=== PATIENT | male | born 1955 | race Caucasian/White ===

== ENCOUNTER → 2017-12-29 | Outpatient (CLI) | payer OTHER ==
[~2017-12-29] MED LIST: DIATRIZOATE MEGL/DIATRIZOA SOD 30 ML BTL PO ONE; IOPAMIDOL 370 MG/ML 200 ML INFUS..BTL INJ ONE; SODIUM CHLORIDE 0.9% 250ML 250 ML ONE; SODIUM CHLORIDE 0.9% 50ML 50 ML ONE
[2017-12-29 08:17] LABS: CREATININE, SERUM 1.25 mg/dL (0.72-1.25)
--- NOTE | 2017-12-29 10:34 | Diagnostic Imaging Report ---
PROCEDURE: CT ABDOMEN AND PELVIS WITH CONTRAST TECHNIQUE: The abdomen and pelvis were scanned utilizing a multidetector helical scanner from the diaphragm to the lesser trochanter after the IV administration of 100 cc of Isovue 370 and the oral administration of water intermixed with Gastrografin. Coronal and sagittal multiplanar reformations were obtained. DLP: 646.23 mGy-cm COMPARISON: Patients [facility], CT, CT ABDOMEN AND PELVIS WITHOUT CONTRAST, 05/30/2009, 12:14. INDICATIONS: Lower groin pain FINDINGS: LOWER THORAX: Normal. HEPATOBILIARY: Diffuse hepatic steatosis. Small hepatic hypodensity again noted but too small to characterize. No biliary ductal dilatation. SPLEEN: No splenomegaly. PANCREAS: No focal masses. Mild pancreatic duct dilatation unchanged. ADRENALS: No adrenal nodules. KIDNEYS/URETERS: The right renal cyst has now increased in size measuring 4.2 cm (previously measured 2.4 cm). There is a nonobstructing 3.5 mm left lower pole renal stone. PELVIC ORGANS/BLADDER: Multiple pelvic phleboliths again noted. Prostate is larger than before now measuring 5.7 cm (previously 4.2 cm). The prostate also has a heterogeneous enhancement pattern. PERITONEUM / RETROPERITONEUM: No mass or free fluid LYMPH NODES: No lymphadenopathy. VESSELS: The right hepatic artery originates from the SMA. GI TRACT: No distention or wall thickening. The appendix is normal. BONES AND SOFT TISSUES: Unremarkable. Tiny umbilical hernia. IMPRESSION: 1. Right renal cyst has increased in size. 2. Nonobstructing left lower pole renal stone. 3. Enlargement of the prostate gland. Quinton Patrick D.O. Dictated by: Quinton Patrick D.O. on 12/29/2017 at 10:38 Electronically approved by: Quinton Patrick D.O. on 12/29/2017 at 10:38
== END ==
LOC: CT 07:26
PROVIDERS: ATTEND Family Medicine
DX: R10.30 Lower abdominal pain, unspecified (principal)
CPT/HCPCS: 36415; 74177; 82565; 84520; J7050; Q9967

== ENCOUNTER → 2018-06-26 | Outpatient (CLI) | payer OTHER ==
--- NOTE | 2018-06-26 12:34 | Diagnostic Imaging Report ---
EXAM: Abdomen 2 Views INDICATION: ^[id number] ^[id number] ^CALCULUS OF KIDNEY COMPARISON: [facility] dated 01/29/2011 FINDINGS: Nonobstructive bowel gas pattern. No signs of pneumoperitoneum. 3 mm calcification overlying left renal inferior pole. Unchanged pelvic phleboliths. No acute osseous abnormality. IMPRESSION: 1. 3 mm left renal inferior pole calculus. 2. Nonobstructive bowel gas pattern. Signed by: Dr. Jose Eduardo Jimenez MD on 06/26/2018 12:31 PM
== END ==
LOC: RAD 11:13
PROVIDERS: ATTEND Urology
DX: N20.0 Calculus of kidney (principal)
CPT/HCPCS: 74018

== ENCOUNTER → 2018-11-04 | Outpatient (CLI) | payer MEDICARE, OTHER ==
--- NOTE | 2018-11-04 09:39 | Diagnostic Imaging Report ---
Exam: Abdominal film Clinical History: Renal stone Comparison: [facility] 06/26/2018, CT abdomen and pelvis 12/29/2017 DISCUSSION: Bowel gas pattern shows no dilated, air-filled loops of bowel. Unchanged 3 mm calcification projecting over the lower pole of the left renal shadow. Multiple large pelvic phleboliths are unchanged. No mass effect or organomegaly. Bowel gas pattern is nonobstructive. 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 IMPRESSION: Unchanged appearance of 3 mm left lower pole renal calculus. Signed by: Dr. Shawn Silva M.D. on 11/04/2018 9:36 AM
== END ==
LOC: RAD 08:32
PROVIDERS: ATTEND Urology
DX: N20.0 Calculus of kidney (principal)
CPT/HCPCS: 74018

== ENCOUNTER → 2019-03-15 | Outpatient (CLI) | payer MEDICARE, OTHER ==
--- NOTE | 2019-03-15 09:15 | Diagnostic Imaging Report ---
Exam: [facility] - 2 views Indication: Renal calculi Comparison: Multiple prior abdominal radiographs, most recently of 11/04/2018 Findings: A 4 mm calcific density overlying the expected left renal upper pole may represent renal calculus versus intraluminal bowel contents. The previously seen left lower pole renal calculus is no longer visualized on this study. No other radiographically apparent renal calculi. No acute osseous injury. Degenerative changes of the visualized spine. Numerous phleboliths in the pelvis. Nonobstructive bowel gas pattern. No free air. Impression: 4 mm calcific density overlying the left renal upper pole may represent renal calculus versus intraluminal bowel content. Previously seen left lower pole renal calculus no longer visualized on today's exam. Signed by: Cory Baez MD on 03/15/2019 9:12 AM
== END ==
LOC: RAD 08:34
PROVIDERS: ATTEND Urology
DX: N20.0 Calculus of kidney (principal)
CPT/HCPCS: 74018

== ENCOUNTER → 2019-09-02 | Outpatient (CLI) | payer MEDICARE, OTHER ==
--- NOTE | 2019-09-02 17:01 | Diagnostic Imaging Report ---
Exam: [facility] - 2 views Indication: Renal calculi Comparison: Multiple prior [facility], most recently 03/15/2019 Findings: No radiographically apparent renal calculi. Nonobstructive bowel gas pattern. No free air. Phleboliths in the pelvis. Mild degenerative changes of the visualized spine. Mild degenerative changes of the right hip joint and moderate degenerative changes of the left hip joint. Impression: No radiographically apparent renal calculi. Nonobstructive bowel gas pattern. No free air. Signed by: Cory Baez MD on 09/02/2019 4:59 PM
== END ==
LOC: RAD 10:35
PROVIDERS: ATTEND Urology
DX: N20.0 Calculus of kidney (principal)
CPT/HCPCS: 74018

== ENCOUNTER → 2020-10-24 | Outpatient (CLI) | payer MEDICARE, OTHER ==
[~2020-10-24] MED LIST changes: -SODIUM CHLORIDE 0.9% 250ML 250 ML ONE
[2020-10-24 16:04] LABS: BLOOD UREA NITROGEN 19 mg/dL (7-26); BUN/CREATININE RATIO 16 (6-25); CREATININE, SERUM 1.16 mg/dL (0.72-1.25); EST GLOMERULAR FILTRATION RATE > 60 ML/MIN (60-)
== END ==
LOC: CT 15:04
PROVIDERS: ATTEND Family Medicine
DX: R10.31 Right lower quadrant pain (principal)
CPT/HCPCS: 36415; 72193; 82565; 84520; Q9967

== ENCOUNTER → 2020-11-17 | Day surgery (SDC) | payer MEDICARE, OTHER ==
[2020-11-14 11:31] LABS: BASOPHILS % 0.5 % (0.0-1.0); EOSINOPHILS # (AUTO) 0.2 (0.0-0.4); EOSINOPHILS % 3.1 % (0.0-6.0); HEMATOCRIT 41.9 % (38.2-49.6); HEMOGLOBIN 13.3 g/dL (14.0-18.0); LYMPHOCYTES # (AUTO) 1.7 (1.0-3.2); LYMPHOCYTES % 23.2 % (18.0-39.1); MEAN CORPUSCULAR HEMOGLOBIN 28.7 pg (28-32); MEAN CORPUSCULAR HGB CONC 31.7 g/dL (31-35); MEAN CORPUSCULAR VOLUME 90.3 fL (81-99); MONOCYTES # (AUTO) 0.5 (0.2-0.8); MONOCYTES % 7.2 % (4.4-11.3); NEUTROPHILS # (AUTO) 4.9 (2.1-6.9); NEUTROPHILS % 65.6 % (38.7-80.0); PLATELET COUNT 216 x10e3/uL (140-360); RED BLOOD COUNT 4.64 x10e6/uL (4.3-5.7); RED CELL DISTRIBUTION WIDTH 14.2 % (11.7-14.4)
[2020-11-14 11:48] LABS: ANION GAP 13.3 mmol/L (8-16); CALCIUM 9.5 mg/dL (8.4-10.2); CREATININE, SERUM 1.32 mg/dL (0.72-1.25); POTASSIUM 4.3 mmol/L (3.5-5.1)
[~2020-11-17] MED LIST changes: +ADVAIR 100-501 EACH INH; +BUPIVACAINE 0.25% 30ML SDV ONE; -DIATRIZOATE MEGL/DIATRIZOA SOD 30 ML BTL PO ONE; +FENTANYL CITRATE/PF 100MCG/2 ML INJ ONE; -IOPAMIDOL 370 MG/ML 200 ML INFUS..BTL INJ ONE; +KETAMINE HCL INJ 50 MG/ML 10 ML VIAL ONE; +LIDOCAINE 1% W/EPINEPHRINE 20 ML VIAL ONE; +LIDOCAINE HCL 1% LOCAL INJ 20 ML VIAL ONE; +LIDOCAINE HCL 2% LOCAL INJ 5 ML SDV VIAL INJ ONE; +MIDAZOLAM HCL 2 MG/2 ML VIAL ONE; +POVIDONE IODINE 0.05% 0.05 % ML PO ONE; +PROPOFOL IV EMULSION 10 MG/ML 20 ML VIAL ONE; +RAPAFLO4 MG PO; -SODIUM CHLORIDE 0.9% 50ML 50 ML ONE
[2020-11-17 15:32] VITALS: BP 128/76
== END | disposition home or self-care (01) ==
LOC: OR 08:38
PROVIDERS: ATTEND Surgery
DX: K40.90 Unilateral inguinal hernia, without obstruction or gangrene, not specified as recurrent (principal); D17.6 Benign lipomatous neoplasm of spermatic cord; I10 Essential (primary) hypertension; F41.9 Anxiety disorder, unspecified; J45.909 Unspecified asthma, uncomplicated; Z01.810 Encounter for preprocedural cardiovascular examination; Z01.812 Encounter for preprocedural laboratory examination; Z01.818 Encounter for other preprocedural examination; Z20.822 Contact with and (suspected) exposure to COVID-19
CPT/HCPCS: 36415; 49505; 71046; 80048; 85025; 93005; C1781; J2001; J2250; J2704; J3010; U0002

== ENCOUNTER → 2021-02-14 | Day surgery (SDC) | payer MEDICARE, OTHER ==
[2021-02-12 09:45] LABS: BASOPHILS % 0.4 % (0.0-1.0); EOSINOPHILS # (AUTO) 0.2 (0.0-0.4); EOSINOPHILS % 2.4 % (0.0-6.0); HEMOGLOBIN 14.4 g/dL (14.0-18.0); LYMPHOCYTES # (AUTO) 1.4 (1.0-3.2); MEAN CORPUSCULAR HEMOGLOBIN 29.7 pg (28-32); MEAN CORPUSCULAR VOLUME 92.8 fL (81-99); MONOCYTES # (AUTO) 0.5 (0.2-0.8); MONOCYTES % 6.9 % (4.4-11.3); PLATELET COUNT 218 x10e3/uL (140-360); RED BLOOD COUNT 4.85 x10e6/uL (4.3-5.7); RED CELL DISTRIBUTION WIDTH 14.6 % (11.7-14.4)
[2021-02-12 10:08] LABS: ANION GAP 10.4 mmol/L (8-16); CALCIUM 9.6 mg/dL (8.4-10.2); CREATININE, SERUM 1.26 mg/dL (0.72-1.25); POTASSIUM 4.4 mmol/L (3.5-5.1)
[~2021-02-14] MED LIST changes: -BUPIVACAINE 0.25% 30ML SDV ONE; +BUPIVACAINE HCL 0.5% 10ML MPF VIAL INJ ONE; +CENTRUM ADULTS1 EACH PO; -FENTANYL CITRATE/PF 100MCG/2 ML INJ ONE; -KETAMINE HCL INJ 50 MG/ML 10 ML VIAL ONE; -LIDOCAINE HCL 1% LOCAL INJ 20 ML VIAL ONE; -LIDOCAINE HCL 2% LOCAL INJ 5 ML SDV VIAL INJ ONE; +TURMERIC538 MG PO
[2021-02-14 10:45] VITALS: BP 126/88
== END | disposition home or self-care (01) ==
LOC: OR 06:21
PROVIDERS: ATTEND Surgery
DX: K40.90 Unilateral inguinal hernia, without obstruction or gangrene, not specified as recurrent (principal); D17.6 Benign lipomatous neoplasm of spermatic cord; I45.10 Unspecified right bundle-branch block; J45.909 Unspecified asthma, uncomplicated; N20.0 Calculus of kidney; Z01.810 Encounter for preprocedural cardiovascular examination; Z01.812 Encounter for preprocedural laboratory examination; Z20.822 Contact with and (suspected) exposure to COVID-19
CPT/HCPCS: 36415; 49505; 80048; 85025; 93005; C1781; J2250; J2704; U0002